=== PATIENT | female | born 1955 | race Caucasian/White ===

== ENCOUNTER → 2020-06-15 | Day surgery (SDC) | payer BC, OTHER | END | disposition home or self-care (01) | LOC: FMAMMOTONE 10:03 | PROVIDERS: ATTEND Surgery Surgical Oncology | PROC: 0HBU3ZX Excision of Left Breast, Percutaneous Approach, Diagnostic (ICD-10-PCS; principal; 2020-06-15) | DX: D24.2 Benign neoplasm of left breast (principal); R92.1 Mammographic calcification found on diagnostic imaging of breast | CPT/HCPCS: 19081; 76098-TC-FY; 87899; 88305-TC; A4648 ==